=== PATIENT | male | born 1985 | race Caucasian/White ===

== ENCOUNTER 2020-01-15 14:09 | Emergency (ER) | payer OTHER ==
[~2020-01-15] VITALS: Ht 170.2 cm; Wt 82.0 kg
[2020-01-15] MEDS ORDERED: IV NORMAL SALINE 1,000ML 1,000 ML IV ONE (14:45)
--- NOTE | 2020-01-15 14:48 | PHYS DOC ---
Past History Past Medical History: A-Fib (MARA LOPEZ APRN) Past Surgical History: Other Additional Past Surgical Histo: cleft palatte (MARA LOPEZ APRN) Alcohol Use: Occasionally (MARA LOPEZ APRN) Adult General Chief Complaint Chief Complaint: CHEST PAIN [facility] HPI Patient is a 33-year-old male patient presents with palpitations. Patient reports he is in A. fib again. Reports he has had several episodes of A. fib, starting approximately 1 year ago, had a prior ablation a has another scheduled ablation February 21. States he does take metoprolol and flecainide as needed when he goes into A. fib, last one at noon today. States that this episode has lasted longer than his prior, states he just has a palpitation. Denies any dyspnea, denies any dizziness, denies any nausea, vomiting, diarrhea. Denies any chest discomfort. Other than his palpitations. Does report he had previously taken Xarelto, however was stopped after approximately 1 month after starting it by his tile decorator, as he converted out of A. fib at the time. Denies any recent weight changes, denies any diet changes. Does report a family history of cardiac issues however no family members dying at a young age. (MARA LOPEZ APRN) Review of Systems Review of Systems Constitutional: Denies fever or chills [] Eyes: Denies change in visual acuity, redness, or eye pain [] HENT: Denies nasal congestion or sore throat [] Respiratory: Denies cough or shortness of breath [] Cardiovascular: No additional information not addressed in HPI [] GI: Denies abdominal pain, nausea, vomiting, bloody stools or diarrhea [] : Denies dysuria or hematuria [] Musculoskeletal: Denies back pain or joint pain [] Integument: Denies rash or skin lesions [] Neurologic: Denies headache, focal weakness or sensory changes [] Endocrine: Denies polyuria or polydipsia [] All other systems were reviewed and found to be within normal limits, except as documented in this note. (MARA LOPEZ APRN) Family History Family History Grandparents with prior cardiac history (MARA LOPEZ APRN) Current Medications Current Medications Metoprolol and flecainide as needed (MARA LOPEZ APRN) Allergies Allergies Allergies Coded Allergies Type Severity Reaction Last Updated Verified clindamycin Allergy Mild rash 01/15/20 Yes cefaclor Allergy Unknown rash 01/15/20 Yes (MARA LOPEZ APRN) Physical Exam Physical Exam Constitutional: Well developed, well nourished, no acute distress, non-toxic appearance. [] HENT: Normocephalic, atraumatic, bilateral external ears normal, oropharynx moist, no oral exudates, nose normal. [] Eyes: PERRLA, EOMI, conjunctiva normal, no discharge. [] Neck: Normal range of motion, no tenderness, supple, no stridor. [] Cardiovascular:Heart rate irregular rhythm, no murmur heart rate varying 96-135, atrial fib on the monitor [] Lungs & Thorax: Bilateral breath sounds clear to auscultation [] Abdomen: Bowel sounds normal, soft, no tenderness, no masses, no pulsatile masses. [] Skin: Warm, dry, no erythema, no rash. [] Back: No tenderness, no CVA tenderness. [] Extremities: No tenderness, no cyanosis, no clubbing, ROM intact, no edema. [] Neurologic: Alert and oriented X 3, normal motor function, normal sensory function, no focal deficits noted. [] Psychologic: Affect normal, judgement normal, mood normal. [] (MARA LOPEZ APRN) Current Patient Data Vital Signs Vital Signs Date Time Temp Pulse Resp B/P (MAP) Pulse Ox O2 Delivery O2 Flow Rate FiO2 01/15/20 14:13 97.9 132 18 154/91 (112) 98 (MARA LOPEZ APRN) EKG EKG Atrial fibrillation 126. no ST changes, no STEMI per Dr Sweet @ 1416. Normal axis. normal intervals exclusive of VT [] (MARA LOPEZ APRN) Radiology/Procedures Radiology/Procedures [] (MARA LOPEZ APRN) Heart Score HEART Score for Chest Pain: HEART Score for Chest Pain Response (Comments) Value History Slighlty/Non-Suspicious 0 ECG Normal 0 Age < 45 0 Risk Factors 1 or 2 Risk Factors 1 Troponin < Normal Limit 0 Total 1 Risk Factors: Risk Factors: DM, Current or recent (<one month) smoker, HTN, HLP, family history of CAD, obesity. Risk Scores: Risk Factors: DM, Current or recent (<one month) smoker, HTN, HLP, family history of CAD, obesity. (MARA LOPEZ APRN) Course & Med Decision Making Course & Med Decision Making Pertinent Labs and Imaging studies reviewed. (See chart for details) [] Reviewed findings today with noted lab abnormalities hypomagnesemia, given patient history of prior episodes of A. fib will like to start him daily dose of medication to work and when taken, consider sotalol. Also consideration for anticoagulants again. Patient does have follow-up with his tile decorator in the next 5 weeks, for another ablation. Patient does have follow-up scheduled and plan for long-term management of this A. fib. TSH still pending. Patient with no complaints of palpitations, no chest discomfort, no dizziness. HR has slowed following Sotalol PO. on discharge, HR 96, continues in A fibl. Patient in agreement with plan for medication management, has follow up with cardiology for pre-op Feb 07. (MARA LOPEZ APRN) Dragon Disclaimer Dragon Disclaimer This electronic medical record was generated, in whole or in part, using a voice recognition dictation system. (MARA LOPEZ APRN) Attending Co-Sign The patient was seen and interviewed as well as examined at the bedside. The chart was reviewed. The case was discussed. Agree with the plan of care. (LIN SWEET DO) Departure Departure: Impression: Primary Impression: Atrial fibrillation with controlled ventricular rate Disposition: [place] HOME SELF CARE/HOMELESS Condition: STABLE Referrals: JERMAINE KU (PCP) Patient Instructions: Atrial Fibrillation, [id number], Sotalol tablets ([place]) Additional Instructions: As discussed, continue on the medications until your pre-op on about Feb 07. Keep your appointment with the tile decorator in late january for your ablation. Don't take your Metoprolol and Flecanide while you're on the Sotalol. Follow up with your primary care provider as needed Scripts Rivaroxaban (XARELTO) 10 Mg Tablet 10 MG PO DAILY for atrial fibrillation for 30 Days, #30 TAB Prov: MARA LOPEZ APRN 01/15/20 Sotalol Hcl (SOTALOL) 80 Mg Tablet 80 MG PO BID for atrial fibrillation for 30 Days, #60 TAB Prov: MARA LOPEZ APRN 01/15/20 MARA LOPEZ APRN Jan 15, 2020 14:48 LIN SWEET DO Jan 16, 2020 18:20
[2020-01-15 14:58] LABS: BASO # 0.1 x10^3/uL (0.0-0.2); BASO % 1 % (0-3); EOS # 0.1 x10^3/uL (0.0-0.7); EOS % 1 % (0-3); HEMATOCRIT 49.1 % (39.0-53.0); HEMOGLOBIN 16.5 g/dL (13.0-17.5); LYMPH # 2.1 x10^3/uL (1.0-4.8); LYMPH % 25 % (24-48); MEAN CORPUSCULAR HEMOGLOBIN 30 pg (25-35); MEAN CORPUSCULAR HGB CONC 34 g/dL (31-37); MEAN CORPUSCULAR VOLUME 90 fL (79-100); MONO # 0.6 x10^3/uL (0.0-1.1); MONO % 7 % (0-9); NEUT # 5.5 x10^3uL (1.8-7.7); NEUT % 66 % (31-73); PLATELET COUNT 169 x10^3/uL (140-400); RED BLOOD COUNT 5.47 x10^6/uL (4.30-5.70); RED CELL DISTRIBUTION WIDTH 13.5 % (11.5-14.5); WHITE BLOOD COUNT 8.4 x10^3/uL (4.0-11.0)
[2020-01-15 15:04] LABS: CALCIUM 10.3 mg/dL (8.5-10.1); GFR 86.1; POTASSIUM 3.7 mmol/L (3.5-5.1)
[2020-01-15 15:11] LABS: ALBUMIN 4.6 g/dL (3.4-5.0); ALBUMIN/GLOBULIN RATIO 1.3 (1.0-1.7); MAGNESIUM 1.6 mg/dL (1.8-2.4); TOTAL BILIRUBIN 0.5 mg/dL (0.2-1.0); TOTAL PROTEIN 8.1 g/dL (6.4-8.2)
--- NOTE | 2020-01-15 15:17 | EKG ---
[address] [address] Test Date: 2020-01-15 Test Time: 14:12:49 Pat Name: BAHRAT LOPEZ Department: Room: Gender: M Data Entry Technician: MACARENA : 1985 Requested By: LIN SWEET Order Number: [id number] Reading MD: Measurements Intervals [place] Rate: 126 P: [place]: QRS: 3 QRSD: 98 T: 43 QT: 312 QTc: 452 Interpretive Statements IRREGULAR RHYTHM, NO P-WAVE FOUND OTHERWISE NORMAL ECG RI6.02 No previous ECG available for comparison
[2020-01-15] MEDS ORDERED: SOTALOL 80 MG TABLET. PO ONE (16:00)
[2020-01-15] MEDS ORDERED: SOTA80TA48 PO (17:08)
[2020-01-15] MEDS ORDERED: RIVA10TA PO (17:08)
[2020-01-15 18:00] VITALS: BP 137/91
== END 2020-01-15 18:00 | disposition home or self-care (01) ==
LOC: ER 14:09
DX: I48.91 Unspecified atrial fibrillation (principal); Z88.1 Allergy status to other antibiotic agents
CPT/HCPCS: 36415; 80053; 82550; 83735; 84443; 84484; 85025; 93005; 96360; 96361; 99285; J7030

== ENCOUNTER 2020-03-26 09:34 | Emergency (ER) | payer OTHER ==
[~2020-03-26] VITALS: Ht 170.2 cm; Wt 82.0 kg
[~2020-03-26 09:34] MED LIST: RIVA10TA PO; SOTA80TA48 PO
--- NOTE | 2020-03-26 10:26 | PHYS DOC ---
Past History Past Medical History: A-Fib Past Surgical History: Other Additional Past Surgical Histo: cleft palatte Alcohol Use: Occasionally General Adult EDM: Chief Complaint: RAPID HEART RATE HPI: HPI: Patient is a 34-year-old male coming in for palpitations and irregular heart rate since waking up this morning. Patient says symptoms started around 3-1/2 hours ago. He has a history significant for atrial fibrillation was seen 2 months ago and started on sotalol and Xarelto, 1 month ago had an ablation and states that he has since been in sinus rhythm until today. Denies any shortness of breath, lower extremity edema, chest pain or pressure. States he otherwise has been well denies any recent fevers, cough, vomiting, diarrhea. Patient states he drinks about 3 cups of coffee a day and drinks alcohol on the weekends, denies any tobacco or drugs. Review of Systems: Review of Systems: Negative other than HPI Allergies: Allergies: Allergies Coded Allergies Type Severity Reaction Last Updated Verified clindamycin Allergy Mild rash 01/15/20 Yes cefaclor Allergy Unknown rash 01/15/20 Yes Physical Exam: PE: Constitutional: Well developed, well nourished, no acute distress, non-toxic appearance. [] HENT: Normocephalic, atraumatic, bilateral external ears normal, oropharynx moist, no oral exudates, nose normal. [] Eyes: PERRLA, EOMI, conjunctiva normal, no discharge. [] Neck: Normal range of motion, no tenderness, supple, no stridor. [] Cardiovascular: Irregularly irregular rhythm, tachycardic, no murmurs Lungs & Thorax: Bilateral breath sounds clear to auscultation [] Abdomen: Bowel sounds normal, soft, no tenderness, no masses, no pulsatile masses. [] Skin: Warm, dry, no erythema, no rash. [] Back: No tenderness, no CVA tenderness. [] Extremities: No tenderness, no cyanosis, no clubbing, ROM intact, no edema. [] Neurologic: Alert and oriented X 3, normal motor function, normal sensory function, no focal deficits noted. [] Psychologic: Affect normal, judgement normal, mood normal. [] Current Patient Data: Vital Signs: Vital Signs Date Time Temp Pulse Resp B/P (MAP) Pulse Ox O2 Delivery O2 Flow Rate FiO2 03/26/20 09:41 124 22 130/65 (86) 98 EKG: EKG: Atrial fibrillation, heart rate 128, normal axis, no ST elevation or depression [] Radiology/Procedures: Radiology/Procedures: XR CHEST 1V History: Reason: afib / Spl. Instructions: / History: Comparison: None. Findings: No consolidation or pleural effusion. Normal heart size. No pneumothorax. Impression: 1. No acute cardiopulmonary process. [] Heart Score: Risk Factors: Risk Factors: DM, Current or recent (<one month) smoker, HTN, HLP, family history of CAD, obesity. Risk Scores: Score 0 - 3: 2.5% MACE over next 6 weeks - Discharge Home Score 4 - 6: 20.3% MACE over next 6 weeks - Admit for Clinical Observation Score 7 - 10: 72.7% MACE over next 6 weeks - Early Invasive Strategies Course & Med Decision Making: Course & Med Decision Making Pertinent Labs and Imaging studies reviewed. (See chart for details) Cardiac work-up unremarkable, A. fib likely triggered by alcohol consumption and mild dehydration. 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 Discussed minimizing alcohol and caffeine use and increasing other fluid intake. [] Dragon Disclaimer: Dragon Disclaimer: This electronic medical record was generated, in whole or in part, using a voice recognition dictation system. Departure Departure: Impression: Primary Impression: Paroxysmal atrial fibrillation Disposition: 01 [place] HOME SELF CARE/HOMELESS Condition: STABLE Referrals: JERMAINE KU (PCP) Patient Instructions: Atrial Fibrillation Additional Instructions: Increase sotalol dose to 2 tabs (160 mg in the morning) and 1 tab in the evening (80 mg). Call your hebrew professor to arrange follow-up today to monitor response to medication increase. Reduce caffeine and alcohol use. ALFREDA ORTIZ MD Mar 26, 2020 10:26
[2020-03-26 10:33] LABS: BASO # 0.1 x10^3/uL (0.0-0.2); BASO % 1 % (0-3); EOS % 0 % (0-3); HEMATOCRIT 48.2 % (39.0-53.0); HEMOGLOBIN 16.2 g/dL (13.0-17.5); LYMPH # 1.3 x10^3/uL (1.0-4.8); LYMPH % 17 % (24-48); MEAN CORPUSCULAR HEMOGLOBIN 31 pg (25-35); MEAN CORPUSCULAR HGB CONC 34 g/dL (31-37); MEAN CORPUSCULAR VOLUME 91 fL (79-100); MONO # 0.2 x10^3/uL (0.0-1.1); MONO % 2 % (0-9); NEUT # 6.5 x10^3uL (1.8-7.7); NEUT % 81 % (31-73); PLATELET COUNT 177 x10^3/uL (140-400); RED BLOOD COUNT 5.33 x10^6/uL (4.30-5.70); RED CELL DISTRIBUTION WIDTH 13.2 % (11.5-14.5); WHITE BLOOD COUNT 8.1 x10^3/uL (4.0-11.0)
--- NOTE | 2020-03-26 10:34 | RAD ---
XR CHEST 1V History: Reason: afib / Spl. Instructions: / History: Comparison: None. Findings: No consolidation or pleural effusion. Normal heart size. No pneumothorax. Impression: 1. No acute cardiopulmonary process. Electronically signed by: Chang Harper DO (03/26/2020 10:31 AM) [id number]
[2020-03-26 10:41] LABS: CALCIUM 9.2 mg/dL (8.5-10.1); CREATININE 1.2 mg/dL (0.7-1.3); GFR 69.7; POTASSIUM 4.5 mmol/L (3.5-5.1)
[2020-03-26 10:42] LABS: BARBITURATES NEG (NEG); BENZODIAZEPINES NEG (NEG); CANNABINOIDS NEG (NEG); COCAINE NEG (NEG); METHADONE NEG (NEG); OPIATES NEG (NEG); PHENCYCLIDINE NEG (NEG)
[2020-03-26 10:43] LABS: AMPHETAMINE/METHAMPHETAMINE NEG (NEG)
[2020-03-26 10:51] LABS: BILIRUBIN,URINE NEG (NEG); CLARITY,URINE CLEAR; COLOR,URINE YELLOW; GLUCOSE,URINE NEG (NEG)
[2020-03-26 10:52] LABS: BACTERIA,URINE 0 /HPF (0-FEW); NITRITE,URINE NEG (NEG); RBC,URINE 0 /HPF (0-2); SQUAMOUS EPITHELIAL CELL,UR OCC /LPF; UROBILINOGEN,URINE 0.2 mg/dL (0.2 mg/dL); WBC,URINE 0 /HPF (0-4)
[2020-03-26 10:54] LABS: ALBUMIN 4.2 g/dL (3.4-5.0); ALBUMIN/GLOBULIN RATIO 1.1 (1.0-1.7); MAGNESIUM 1.9 mg/dL (1.8-2.4); TOTAL BILIRUBIN 0.7 mg/dL (0.2-1.0); TOTAL PROTEIN 7.9 g/dL (6.4-8.2)
[2020-03-26] MEDS ORDERED: IV NORMAL SALINE 500ML 500 ML IV ONE (11:00)
[2020-03-26 11:03] VITALS: BP 112/64
[2020-03-26] MEDS ORDERED: SOTALOL 80 MG TABLET. PO STA (11:03)
[2020-03-26] MEDS ORDERED: ORPHENADRINE CITRATE 60 MG/2 ML VIAL. IM ONE (12:00)
[2020-03-26] MEDS ORDERED: ACETAMINOPHEN 500 MG TABLET PO ONE (12:00)
--- NOTE | 2020-03-26 13:24 | EKG ---
[address] [address] Test Date: 2020-03-26 Test Time: 09:43:16 Pat Name: POLLO LOPEZ Department: Room: Gender: M Fws Faculty Assistant: : 1985 Requested By: ALFREDA ORTIZ Order Number: [id number] Reading MD: Measurements Intervals [place] Rate: 128 P: [place]: QRS: 28 QRSD: 92 T: 23 QT: 336 QTc: 494 Interpretive Statements IRREGULAR RHYTHM, NO P-WAVE FOUND OTHERWISE NORMAL ECG RI6.02 No previous ECG available for comparison
== END 2020-03-26 12:40 | disposition home or self-care (01) ==
LOC: ER 09:34
DX: I48.0 Paroxysmal atrial fibrillation (principal); Z79.01 Long term (current) use of anticoagulants; Z88.1 Allergy status to other antibiotic agents
CPT/HCPCS: 36415; 71045; 80053; 80307; 81001; 83735; 83880; 84484; 85025; 85379; 93005; 96360; 99285; J7040